=== PATIENT | female | born 1970 | race Two or more races ===

== ENCOUNTER 2020-11-01 11:33 | Inpatient (IN) | payer OTHER ==
[~2020-11-01] VITALS: Ht 165.1 cm; Wt 59.0 kg
[2020-11-05] MEDS ORDERED: MECLIZINE HCL25 MG PO (12:07)
== END 2020-11-05 14:31 | disposition home or self-care (01) | DRG 312 ==
LOC: ER 11:33 → SURG 20:57
PROVIDERS: ADMIT Surgery; ATTEND Surgery
PROC: B02 Imaging, Central Nervous System, Computerized Tomography (CT Scan) (ICD-10-PCS; principal; 2020-11-02)
PROC: B030ZZZ Magnetic Resonance Imaging (MRI) of Brain (ICD-10-PCS; 2020-11-03)
PROC: B030Y0Z Magnetic Resonance Imaging (MRI) of Brain using Other Contrast, Unenhanced and Enhanced (ICD-10-PCS; 2020-11-03)
DX: R55 Syncope and collapse (principal); R42 Dizziness and giddiness; R11.0 Nausea; Z20.822 Contact with and (suspected) exposure to COVID-19
CPT/HCPCS: 70552